=== PATIENT | female | born 1990 | race Caucasian/White ===

== ENCOUNTER 2022-10-07 22:01 | Emergency (ER) | payer MEDICAID, SELFPAY ==
[2022-10-07 22:17] VITALS: BP 118/67; PULSE 54; RESP 18; TEMP 36.1; O2SAT 99; BMI 22.8
[2022-10-07 22:43] LABS: MANUAL DIFF FLAG NO
[2022-10-07 22:52] LABS: Basophils Absolute Auto 0.1 X10*3/uL (0.0-0.2); Basophils Percent Auto 0.5 % (0-2); Eosinophils Absolute Auto 0.1 X10*3/uL (0.0-0.4); Eosinophils Percent Auto 1.4 % (0-4); Hemoglobin 13.8 g/dl (12.0-16.0); Imm Gran Abs Auto 0.04 X10*3/uL (0.00-0.03); Imm Gran Pct Auto 0.4 % (0.0-0.4); Lymphocytes Absolute Auto 3.9 X10*3/uL (1.2-4.9); Lymphocytes Percent Auto 38.9 % (20-40); Mean Corpuscular HGB Conc 33.7 g/dl (31.0-35.0); Mean Corpuscular Hemoglobin 29.9 pg (27.0-33.0); Mean Corpuscular Volume 88.9 fL (80.0-98.0); Mean Platelet Volume 11.1 fL (9.4-12.3); Monocytes Absolute Auto 0.8 X10*3/uL (0.1-1.2); Monocytes Percent Auto 8.3 % (2-11); Neutrophils Percent Auto 50.5 % (45-73); Platelet Count 296 X10*3/uL (160-400); Red Blood Count 4.61 X10*6/uL (4.20-5.50); Red Cell Distribution Width 12.1 % (11.0-16.0)
--- NOTE | 2022-10-07 23:04 | ED.URI ---
HPI - URI/Sore Throat General Chief Complaint: Abdominal Pain Stated Complaint: Right ear pain/Bleeding out stool Time Seen by Provider: 10/07/22 23:02 Source: patient Mode of arrival: ambulatory Limitations: no limitations History of Present Illness HPI Narrative: Patient been having pain in bilateral ears and mandible area for last 3- 4 days also patient noticed slight amount of blood in the right ear 3 days ago. No fever no chills no respiratory symptoms patient was complaining of bright red blood per rectum for last few days his history of hemorrhoids Related Data Previous Rx's Medication Instructions Recorded hydrocortisone acetate 25 mg 25 mg [place] BID #12 ea 10/07/22 rectal suppository (Anusol-HC) tramadol 50 mg tablet 50 mg PO Q6H PRN pain #20 tabs 10/07/22 Allergies Allergy/AdvReac Type Severity Reaction Status Date / Time metronidazole [From Flagyl] Allergy Hives Verified 10/07/22 22:17 Review of Systems Review of Systems: Yes all other systems are reviewed and are negative [facility] Social History Social History Advance Directives: No Advance Directives Information Provided: No Physical Exam Vital Signs: Vital Signs: Last Vital Signs Temp 97.9 F 10/07/22 23:24 Pulse 74 10/07/22 23:24 Resp 16 10/07/22 23:24 BP 108/63 10/07/22 23:24 Pulse Ox 98 10/07/22 23:24 O2 Del Method Room Air 10/07/22 23:24 BMI result Body Mass Index 22.8 Appearance: Alert. Oriented X3. No acute distress. Eyes: No pallor or icterus ENT: Pharynx normal. Oral Mucosa moist tympanic membrane intact bilateral EAC normal tenderness at TMJ joint bilateral Neck: Normal inspection. Neck supple. CVS: Normal heart rate and rhythm. Pulses normal. Respiratory: No respiratory distress. Equal air entry bilateral, no wheezing/rales/rhonchi Abdomen: Soft and nontender. Bowel sounds are present, Skin: Skin warm and dry. Normal skin color. Normal skin turgor. Extremities: No lower extremity edema. No calf tenderness Neuro: Oriented X 3. No motor deficit. Medications Administered Discontinued Medications Generic Name Dose Route Start Last Admin Trade Name Freq PRN Reason Stop Dose Admin Tramadol HCl 50 mg 10/07/22 23:14 10/07/22 23:23 Tramadol Hcl 50 Mg Tablet PO 10/07/22 23:15 50 mg ONCE ONE Administration Medical Decision Making Medical Decision Making [facility] Narrative: Patient with TMJ pain EAC normal tympanic membrane intact discharge patient home on tramadol advised to follow-up with dentist Lab Data MDM Lab Attestation statement: I reviewed the patient's lab results. 10/07/22 22:36 10/07/22 22:36 Labs: Lab Results 10/07/22 10/07/22 10/07/22 Range/Units 22:36 22:36 22:36 WBC 10.0 (4.8-10.8) X10*3/uL RBC 4.61 (4.20-5.50) X10*6/uL Hgb 13.8 (12.0-16.0) g/dl Hct 41.0 (37.0-47.0) % MCV 88.9 (80.0-98.0) fL MCH 29.9 (27.0-33.0) pg MCHC 33.7 (31.0-35.0) g/dl RDW 12.1 (11.0-16.0) % Plt Count 296 (160-400) X10*3/uL MPV 11.1 (9.4-12.3) fL Immature Gran % (Auto) 0.4 (0.0-0.4) % Neut % (Auto) 50.5 (45-73) % Lymph % (Auto) 38.9 (20-40) % [place] % (Auto) 8.3 (2-11) % Eos % (Auto) 1.4 (0-4) % Baso % (Auto) 0.5 (0-2) % Lymph # (Auto) 3.9 (1.2-4.9) X10*3/uL [place] # (Auto) 0.8 (0.1-1.2) X10*3/uL Eos # (Auto) 0.1 (0.0-0.4) X10*3/uL Baso # (Auto) 0.1 (0.0-0.2) X10*3/uL Abs Immat Gran (auto) 0.04 H (0.00-0.03) X10*3/uL Absolute Neuts (auto) 5.0 (2.0-8.3) x10*3/uL Absolute Nucleated RBC 0.000 (0.0-0.012) X10*3/uL Nucleated RBC % (auto) 0.0 (0.0-0.2) /100WBC Sodium 140 (135-145) mmol/L Potassium 3.8 (3.3-5.1) mmol/L Chloride 103 (96-108) mmol/L Carbon Dioxide 29 (22-29) mmol/L Anion Gap 12 (12-20) BUN 7 L (9-16) mg/dL Creatinine 0.72 (0.5-1.4) mg/dL Estim Creat Clear Calc 87.0 Estimated GFR > 60 Random Glucose 90 (60-115) mg/dL Calcium 9.9 (8.4-10.2) mg/dL Total Bilirubin 0.4 (0.0-1.0) mg/dL AST 18 (5-31) U/L ALT 13 (0-31) U/L Alkaline Phosphatase 51 (39-117) U/L Total Protein 6.9 (6.5-8.0) g/dL Albumin 4.3 (3.5-5.0) g/dL Lipase 28 (8-78) U/L Influenza Type A (PCR) NEGATIVE (Negative) Influenza Type B (PCR) NEGATIVE (Negative) RSV RNA Qual (PCR) NEGATIVE (Negative) SARS-CoV-2 RNA (RT-PCR) NEGATIVE (Negative) Discharge Plan 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
[2022-10-07 23:05] LABS: Alanine Aminotransferase 13 U/L (0-31); Albumin Level 4.3 g/dL (3.5-5.0); Alkaline Phosphatase 51 U/L (39-117); Anion Gap 12 (12-20); Aspartate Amino Transferase 18 U/L (5-31); Bilirubin Total 0.4 mg/dL (0.0-1.0); Blood Urea Nitrogen 7 mg/dL (9-16); Calcium 9.9 mg/dL (8.4-10.2); Carbon Dioxide 29 mmol/L (22-29); Chloride 103 mmol/L (96-108); Estimated Glomerular Filt Rate > 60; Glucose Random 90 mg/dL (60-115); Lipase 28 U/L (8-78); Potassium 3.8 mmol/L (3.3-5.1); Sodium 140 mmol/L (135-145); Total Protein 6.9 g/dL (6.5-8.0)
[2022-10-07] MEDS: traMADoL HCL 50 MG TABLET PO (23:23)
[2022-10-07 23:24] VITALS: BP 108/63; PULSE 74; RESP 16; TEMP 36.6; O2SAT 98
[2022-10-07 23:34] LABS: Influenza A PCR NEGATIVE (Negative); Influenza B PCR NEGATIVE (Negative); Resp Syncy Virus RNA Qual PCR NEGATIVE (Negative); SARS COV2 PCR INHOUSE NEGATIVE (Negative)
== END 2022-10-07 23:32 | disposition home or self-care (01) ==
PROVIDERS: Emergency Provider Internal Medicine
DX: M26.603 Bilateral temporomandibular joint disorder, unspecified (principal); K64.4 Residual hemorrhoidal skin tags; Z20.822 Contact with and (suspected) exposure to COVID-19; Z20.828 Contact with and (suspected) exposure to other viral communicable diseases; Z79.899 Other long term (current) drug therapy
CPT/HCPCS: 0241U; 80053; 83690; 85025; 99283